=== PATIENT | female | born 1975 | race Caucasian/White ===

== ENCOUNTER 2020-02-25 18:11 | Emergency (ER) | payer MEDICAID, OTHER ==
[~2020-02-25] VITALS: Ht 154.9 cm; Wt 130.0 kg
[2020-02-25] MEDS ORDERED: DEXAMETHASONE 4 MG TABLET PO STA (19:44)
[2020-02-25] MEDS ORDERED: IBUPROFEN 200 MG TABLET PO ONE (20:00)
[2020-02-25] MEDS ORDERED: DEXAMETHASONE 4 MG TABLET ONE (20:04)
[2020-02-25] MEDS ORDERED: IBUPROFEN 600 MG TABLET ONE (20:04)
--- NOTE | 2020-02-25 20:08 | NUR ---
CONVERTER SKIMMER PER MAR
[2020-02-25 20:12] VITALS: BP 135/59
--- NOTE | 2020-02-25 20:20 | NUR ---
ALL RESULTS ARE BACK AT THIS TIME. CHART UP FOR RECHECK.
--- NOTE | 2020-02-25 20:56 | NUR ---
ALL RESULTS ARE BACK AT THIS TIME. CHART UP FOR RECHECK.
--- NOTE | 2020-02-25 21:02 | NUR ---
MD AT BEDSIDE TO UPDATE PT ON POC.
== END 2020-02-25 21:50 | disposition home or self-care (01) ==
LOC: ED 20:00
DX: J02.0 Streptococcal pharyngitis (principal); J44.9 Chronic obstructive pulmonary disease, unspecified
CPT/HCPCS: 70360; 87081; 87880; 99284

== ENCOUNTER 2020-03-13 09:35 | Emergency (ER) | payer MEDICAID ==
[~2020-03-13] VITALS: Ht 157.5 cm; Wt 130.0 kg
--- NOTE | 2020-03-13 09:58 | NUR ---
PT BIB AMBULANCE. PT C/O SOB SINCE 629. PER EMS PT WAS 93% RA. PT STATES SHE HAS A HX OF [place] AND COPD. PT DENIES FEVER OR CHEST PAIN AT THIS TIME. PT PLACED ON O2 SHE STATES SHE IS ON 3 LPM AT HOME. ALSO PER EMS PT STATES SHE HAS BEEN COUGHING UP YELLOW/BRWON SPUTUM. LAST EPISODE WAS THIS AM. PT STATES SHE HAD A POSITIVE STREP TEST LAST WEEK. PT PLACED IN A GOWN AND RESTING ON ED GURNEY.
--- NOTE | 2020-03-13 10:02 | NUR ---
PT TAKEN OFF O2 TO OBTAIN A BASE LINE 02 SATURATION
[2020-03-13] MEDS ORDERED: ALBUTEROL/IPRATROPIUM 2.5MG/0.5MG, 3 ML NEB ONE (10:30)
[2020-03-13] MEDS ORDERED: ALBUTEROL/IPRATROPIUM 2.5MG/0.5MG, 3 ML ONE (10:50)
--- NOTE | 2020-03-13 11:05 | NUR ---
PT MEDICATED PER MAR
[2020-03-13 11:20] LABS: BASOPHILS % (AUTO) 0 % (0-1); EOSINOPHILS % (AUTO) 2 % (1-7); LYMPHOCYTES % (AUTO) 14 % (22-44); MEAN CORPUSCULAR HEMOGLOBIN 27.9 pg (27.0-34.8); MEAN CORPUSCULAR HGB CONC 31.5 g/dL (32.4-35.8); MEAN PLATELET VOLUME 9.1 fL (7.4-10.4); MONOCYTES % (AUTO) 6 % (2-9); NEUTROPHILS % (AUTO) 78 % (42-75); PLATELET COUNT 219 x10^3/uL (130-400); RED BLOOD COUNT 4.25 x10^6/uL (3.82-5.3); RED CELL DISTRIBUTION WIDTH 16.4 % (9.6-15.2)
[2020-03-13 11:21] LABS: MD NO
[2020-03-13 11:26] LABS: ALANINE AMINOTRANSFERASE 21 U/L (12-78); ALBUMIN 3.3 g/dL (3.4-5.0); ANION GAP 3 mmol/L (5-15); CHLORIDE 112 mmol/L (98-107); CREATININE 0.94 mg/dL (0.55-1.02)
[2020-03-13 11:30] LABS: ALKALINE PHOSPHATASE 103 U/L (45-117); BILIRUBIN,TOTAL 0.6 mg/dL (0.2-1.0); TROPONIN I < 0.015 ng/mL (0.000-0.045)
--- NOTE | 2020-03-13 11:53 | NUR ---
PT C/O LOWER LEFT BACK PAIN WITH AMBULATION.
--- NOTE | 2020-03-13 11:53 | NUR ---
PT COMPLETED AMBULATION WITH SPO2 MONITORING. PT SPO2 RANGED FROM 93-96%. PT STATES SHE HAS DIFFICULTY MOVING DUE TO PAIN AND SOB. PT IS CONCERNED ABOUT GOING HOME DUE TO LIVING IN AN UPSTAIRS APT AND HAVING DIFFICULTY WITH GOING UP AND DOWN THEM.
[2020-03-13 13:09] VITALS: BP 139/69
--- NOTE | 2020-03-13 13:31 | NUR ---
PT REC'VD DISCHARGE INSTRUCTIONS AND EDUCATION. PT HAD NO FURTHER QUESTIONS. PT AMBULATED TO DISCHARGE AREA, STEADY GAIT.
== END 2020-03-13 13:39 | disposition home or self-care (01) ==
LOC: ED 09:40
DX: J44.1 Chronic obstructive pulmonary disease with (acute) exacerbation (principal); Z20.828 Contact with and (suspected) exposure to other viral communicable diseases; R06.02 Shortness of breath; R05 Cough; R06.00 Dyspnea, unspecified; R78.71 Abnormal lead level in blood; E66.01 Morbid (severe) obesity due to excess calories; Z88.0 Allergy status to penicillin; Z90.49 Acquired absence of other specified parts of digestive tract; Z90.710 Acquired absence of both cervix and uterus; Z79.899 Other long term (current) drug therapy; Z68.43 Body mass index [BMI] 50.0-59.9, adult; Z87.891 Personal history of nicotine dependence
CPT/HCPCS: 36415; 71045; 80053; 80178; 83880; 84484; 85025; 87635; 93005; 94640; 99285; J7512

== ENCOUNTER 2020-04-14 21:43 | Emergency (ER) | payer MEDICAID ==
[~2020-04-14] VITALS: Ht 157.5 cm; Wt 129.0 kg
--- NOTE | 2020-04-14 22:17 | NUR ---
PT TO ROOM FROM LOBBY
[2020-04-14] MEDS ORDERED: HYDROcodone/APAP 5/325 TABLET PO PRN (22:30)
[2020-04-14] MEDS ORDERED: IBUPROFEN 600 MG TABLET PO ONE (22:30)
--- NOTE | 2020-04-14 22:30 | NUR ---
CC OF R THUMB PAIN 9/10 FROM SLAMMING THUMB IN CAR DOOR YESTERDAY AFTER LEAVING AN AA MEETING. PAIN HAS NOT GOTTEN BETTER. NO OVBIOUS TRAUMA NOTED TO R THUMB, NO OPEN WOUNDS, NO SWELLING NOTED WHEN COMPARED TO OTHER THUMB.
[2020-04-14] MEDS ORDERED: HYDROcodone/APAP 5/325 TABLET ONE (22:33)
[2020-04-14] MEDS ORDERED: IBUPROFEN 600 MG TABLET ONE (22:34)
--- NOTE | 2020-04-14 22:39 | NUR ---
hydrocodone order for pain, pt states she is okay with taking it and that she only goes to NA meetings with friends to support them. made aware, okay to still give
[2020-04-14 22:43] VITALS: BP 108/39
== END 2020-04-14 23:14 | disposition home or self-care (01) ==
LOC: ED 22:39
DX: S60.011A Contusion of right thumb without damage to nail, initial encounter (principal); G89.11 Acute pain due to trauma; J44.9 Chronic obstructive pulmonary disease, unspecified; E66.01 Morbid (severe) obesity due to excess calories; Z90.49 Acquired absence of other specified parts of digestive tract; Z90.710 Acquired absence of both cervix and uterus; Z87.891 Personal history of nicotine dependence; X58.XXXA Exposure to other specified factors, initial encounter; Y93.89 Activity, other specified; Y92.098 Other place in other non-institutional residence as the place of occurrence of the external cause; Y99.8 Other external cause status
CPT/HCPCS: 99283

== ENCOUNTER 2020-04-20 23:47 | Emergency (ER) | payer MEDICAID ==
[~2020-04-20] VITALS: Ht 160 cm; Wt 129.4 kg
[2020-04-21 00:08] VITALS: BP 138/72
--- NOTE | 2020-04-21 01:49 | NUR ---
PT FROM [facility] TO [facility] WITH RX/DC PAPERWORK, CALLING MTM FOR RIDE HOME AT DC DESK.
== END 2020-04-21 01:50 | disposition home or self-care (01) ==
LOC: ED 04-21 00:15
DX: J45.31 Mild persistent asthma with (acute) exacerbation (principal); J15.9 Unspecified bacterial pneumonia; Z76.0 Encounter for issue of repeat prescription; E66.01 Morbid (severe) obesity due to excess calories
CPT/HCPCS: 29125; 71045; 99283

== ENCOUNTER 2020-04-25 02:20 | Emergency (ER) | payer MEDICAID ==
[~2020-04-25] VITALS: Ht 154.9 cm; Wt 128.0 kg
--- NOTE | 2020-04-25 02:45 | NUR ---
PT AMBULATED TO RESTROOM. PT TOLD RN L LEG/ARM NUMBNESS, PT TOLD MD Pfeiffer ARM NUMBNESS. STROKE ASSESSMENT NEGATIVE. PT COMPLAINING OF DIZZINESS. NOTIFIED.
[2020-04-25 02:58] VITALS: BP 110/68
== END 2020-04-25 03:08 | disposition home or self-care (01) ==
LOC: ED 02:47
DX: R20.2 Paresthesia of skin (principal); R94.31 Abnormal electrocardiogram [ECG] [EKG]; J44.9 Chronic obstructive pulmonary disease, unspecified; E66.01 Morbid (severe) obesity due to excess calories; Z90.49 Acquired absence of other specified parts of digestive tract; Z90.710 Acquired absence of both cervix and uterus; Z87.891 Personal history of nicotine dependence
CPT/HCPCS: 93005; 99283; 99284

== ENCOUNTER 2020-04-28 22:28 | Emergency (ER) | payer MEDICAID ==
[~2020-04-28] VITALS: Ht 157.5 cm; Wt 130.1 kg
--- NOTE | 2020-04-28 22:52 | NUR ---
PT IN BED, ATTACHED TO MONITORS. STATES SHE WAS SEEN AT [facility] TWO DAYS AGO FOR THE SAME ISSUE, AND "THEY FOUND NOTHING WRONG". PT ALSO NOTED TO HAVE A VERY LARGE REDDENED, MOIST AREA UNDER RIGHT BREAST.
[2020-04-28] MEDS ORDERED: SODIUM CHLORIDE FLUSH 10ML SYR IVF ONE (23:30)
[2020-04-28] MEDS ORDERED: SODIUM CHLORIDE 0.9% 1,000ML IVBOLUS ONE (23:30)
[2020-04-28] MEDS ORDERED: ONDANSETRON 2MG/ML, 2ML IVPush ONE (23:30)
[2020-04-28 23:39] LABS: ALANINE AMINOTRANSFERASE 16 U/L (12-78); ALBUMIN 3.3 g/dL (3.4-5.0); ANION GAP 4 mmol/L (5-15); CALCIUM 9.1 mg/dL (8.5-10.1); CHLORIDE 107 mmol/L (98-107); CREATININE 1.05 mg/dL (0.55-1.02)
[2020-04-28] MEDS ORDERED: ONDANSETRON 2MG/ML, 2ML ONE (23:40)
[2020-04-28] MEDS ORDERED: MORPHINE SULFATE 4 MG/ML, 1ML ONE (23:41)
[2020-04-28 23:42] LABS: ALKALINE PHOSPHATASE 96 U/L (45-117); BILIRUBIN,TOTAL 0.3 mg/dL (0.2-1.0); TOTAL PROTEIN 7.2 g/dL (6.4-8.2)
[2020-04-28 23:50] LABS: BASOPHILS % (AUTO) 0 % (0-1); EOSINOPHILS % (AUTO) 1 % (1-7); LYMPHOCYTES % (AUTO) 13 % (22-44); MEAN CORPUSCULAR HEMOGLOBIN 29.5 pg (27.0-34.8); MEAN CORPUSCULAR HGB CONC 32.8 g/dL (32.4-35.8); MEAN PLATELET VOLUME 9.2 fL (7.4-10.4); MONOCYTES % (AUTO) 6 % (2-9); NEUTROPHILS % (AUTO) 80 % (42-75); PLATELET COUNT 280 x10^3/uL (130-400); RED BLOOD COUNT 3.96 x10^6/uL (3.82-5.3); RED CELL DISTRIBUTION WIDTH 15.9 % (9.6-15.2)
[2020-04-28 23:51] LABS: MD NO
--- NOTE | 2020-04-28 23:52 | NUR ---
PT RESTING IN BED IN ROOM, PT ON MONITOR, PT VSS. IV STARTED BY CHEMICAL STRENGTH TESTER AND PT MEDICATED PER EMAR
[2020-04-29] MEDS: MORPHINE SULFATE 4 MG/ML, 1ML IVPush PRN ×2 (00:10→02:00)
[2020-04-29 00:19] LABS: MICROSCOPIC NOT IND
[2020-04-29] MEDS ORDERED: FLUCONAZOLE 200 MG TABLET PO STA (01:45)
[2020-04-29] MEDS ORDERED: OMNIPAQUE 350 MG/ML, 100ML BOTTLE ONE (01:49)
[2020-04-29] MEDS ORDERED: FLUCONAZOLE 100 MG TABLET ONE (01:52)
[2020-04-29] MEDS ORDERED: SULFAMETH./TRIMETHOPRIM DS 800MG/160MG TABLET ONE (01:52)
[2020-04-29] MEDS ORDERED: MORPHINE SULFATE 4 MG/ML, 1ML ONE ×2 (01:52→02:29)
[2020-04-29] MEDS ORDERED: SULFAMETH./TRIMETHOPRIM DS 800MG/160MG TABLET PO ONE (02:00)
[2020-04-29] MEDS ORDERED: ONDANSETRON 2MG/ML, 2ML ONE (02:28)
[2020-04-29] MEDS ORDERED: ONDANSETRON 2MG/ML, 2ML IVPush ONE (02:30)
[2020-04-29] MEDS ORDERED: MORPHINE SULFATE 4 MG/ML, 1ML IVPush PRN (02:30)
[2020-04-29 03:02] VITALS: BP 134/74
[2020-04-30] MEDS ORDERED: lithium PO (22:25)
[2020-04-30] MEDS ORDERED: ARIP30TA4 PO (22:25)
== END 2020-04-29 03:05 | disposition home or self-care (01) ==
LOC: ED 22:39
DX: B37.2 Candidiasis of skin and nail (principal); R10.31 Right lower quadrant pain; L03.313 Cellulitis of chest wall; B35.4 Tinea corporis; J44.9 Chronic obstructive pulmonary disease, unspecified
CPT/HCPCS: 36415; 74177; 80053; 81003; 83690; 85025; 96361; 96374; 96375; 96376; 99285; J2270; J2405; J7030; Q9967

== ENCOUNTER 2020-04-30 19:17 | Emergency (ER) | payer MEDICAID ==
[~2020-04-30] VITALS: Ht 154.9 cm; Wt 130.2 kg
[2020-04-30 21:14] LABS: BASOPHILS % (AUTO) 0 % (0-1); EOSINOPHILS % (AUTO) 1 % (1-7); LYMPHOCYTES % (AUTO) 12 % (22-44); MEAN CORPUSCULAR HEMOGLOBIN 29.6 pg (27.0-34.8); MEAN CORPUSCULAR HGB CONC 32.5 g/dL (32.4-35.8); MEAN PLATELET VOLUME 8.9 fL (7.4-10.4); MONOCYTES % (AUTO) 6 % (2-9); NEUTROPHILS % (AUTO) 81 % (42-75); PLATELET COUNT 273 x10^3/uL (130-400); RED BLOOD COUNT 3.89 x10^6/uL (3.82-5.3); RED CELL DISTRIBUTION WIDTH 16.3 % (9.6-15.2)
[2020-04-30 21:15] LABS: MD NO
[2020-04-30 21:24] LABS: ALBUMIN 3.5 g/dL (3.4-5.0); ANION GAP 4 mmol/L (5-15); CALCIUM 9.4 mg/dL (8.5-10.1); CHLORIDE 107 mmol/L (98-107)
[2020-04-30 21:30] LABS: ALANINE AMINOTRANSFERASE 19 U/L (12-78); ALKALINE PHOSPHATASE 102 U/L (45-117); BILIRUBIN,TOTAL 0.3 mg/dL (0.2-1.0); CREATININE 1.11 mg/dL (0.55-1.02); TOTAL PROTEIN 7.5 g/dL (6.4-8.2)
--- NOTE | 2020-04-30 22:17 | NUR ---
GLUE BONE DRIER: PT. TO ROOM FROM LOBBY AT THIS TIME.
[2020-04-30] MEDS ORDERED: ARIP30TA4 PO (22:25)
[2020-04-30] MEDS ORDERED: lithium PO (22:25)
--- NOTE | 2020-04-30 22:27 | NUR ---
pt reports she came in due to "my stomach gurgling a lot after i ate a sandwich and then i became nauseated and dizzy so i knew something was wrong." denies diarrhea or vomitting at this time. pt ambulated to and from restroom with a smooth and steady gait, now resting on gurney, placed on spo2/bp monitoring at this time. appears comfortable, denies additional questions or needs currently, wctm.
--- NOTE | 2020-04-30 23:12 | NUR ---
PT NAD, RESTING ON GURNEY, DENIES ADDITIONAL NEEDS AT THIS TIME, NO CHANGE IN CONDITION, PROVIDED WARM BLANKETS FOR COMFORT, PT UP FOR RECHECK, WCTM.
[2020-04-30] MEDS ORDERED: ONDANSETRON ODT 4 MG ONE (23:49)
--- NOTE | 2020-04-30 23:49 | NUR ---
Assist RN: patient to RAD. Choudhury to be admin.
--- NOTE | 2020-04-30 23:55 | NUR ---
Medicated patient per mar.
[2020-05-01] MEDS ORDERED: ONDANSETRON ODT 4 MG PO ONE
--- NOTE | 2020-05-01 00:17 | NUR ---
REPORT TO CAROLINA RECINOS, PT CARE TRANSFERRED AT THIS TIME. PT NAD.
--- NOTE | 2020-05-01 00:18 | NUR ---
RECEIVED REPORT FROM JORJE VERA TO ASSUME CARE OF PT. AT THIS TIME.
[2020-05-01 00:42] VITALS: BP 126/48
== END 2020-05-01 00:44 | disposition home or self-care (01) ==
LOC: ED 19:47
DX: R10.84 Generalized abdominal pain (principal); R11.0 Nausea; I48.91 Unspecified atrial fibrillation; J44.9 Chronic obstructive pulmonary disease, unspecified; E66.01 Morbid (severe) obesity due to excess calories; Z90.49 Acquired absence of other specified parts of digestive tract; Z90.710 Acquired absence of both cervix and uterus; Z87.891 Personal history of nicotine dependence; Z68.43 Body mass index [BMI] 50.0-59.9, adult
CPT/HCPCS: 36415; 74021; 80053; 83690; 85025; 93005; 99285; Q0162

== ENCOUNTER 2020-05-11 23:47 | Emergency (ER) | payer MEDICAID ==
[~2020-05-11] VITALS: Ht 157.5 cm; Wt 125.0 kg
[~2020-05-11 23:47] MED LIST: ARIP30TA4 PO; lithium PO
[2020-05-12 02:04] VITALS: BP 130/59
--- NOTE | 2020-05-12 02:17 | NUR ---
seen by PA, x ray resulted. patient discharged with instruction. verbalized understanding.
== END 2020-05-12 02:20 | disposition home or self-care (01) ==
LOC: ED 05-12 01:30
DX: B34.9 Viral infection, unspecified (principal); J44.9 Chronic obstructive pulmonary disease, unspecified; E66.01 Morbid (severe) obesity due to excess calories; Z87.891 Personal history of nicotine dependence
CPT/HCPCS: 71045; 99283

== ENCOUNTER 2020-05-23 23:00 | Emergency (ER) | payer MEDICAID ==
[~2020-05-23] VITALS: Ht 154.9 cm; Wt 127.0 kg
[2020-05-23] MEDS ORDERED: ONDANSETRON ODT 4 MG ONE (23:49)
[2020-05-24] MEDS ORDERED: ONDANSETRON ODT 4 MG PO ONE
[2020-05-24 00:05] LABS: BASOPHILS % (AUTO) 0 % (0-1); EOSINOPHILS % (AUTO) 2 % (1-7); LYMPHOCYTES % (AUTO) 15 % (22-44); MEAN CORPUSCULAR HGB CONC 32.5 g/dL (32.4-35.8); MEAN PLATELET VOLUME 8.8 fL (7.4-10.4); MONOCYTES % (AUTO) 6 % (2-9); NEUTROPHILS % (AUTO) 78 % (42-75); PLATELET COUNT 268 x10^3/uL (130-400); RED BLOOD COUNT 4.03 x10^6/uL (3.82-5.3); RED CELL DISTRIBUTION WIDTH 14.9 % (9.6-15.2)
[2020-05-24 00:06] LABS: MD NO
[2020-05-24 00:15] LABS: ALANINE AMINOTRANSFERASE 30 U/L (12-78); ALBUMIN 3.4 g/dL (3.4-5.0); ANION GAP 0 mmol/L (5-15); CALCIUM 8.9 mg/dL (8.5-10.1); CHLORIDE 110 mmol/L (98-107); CREATININE 1.07 mg/dL (0.55-1.02)
[2020-05-24 00:17] LABS: ALKALINE PHOSPHATASE 111 U/L (45-117); BILIRUBIN,TOTAL 0.5 mg/dL (0.2-1.0); TOTAL PROTEIN 7.1 g/dL (6.4-8.2)
[2020-05-24 00:36] LABS: MICROSCOPIC NOT IND
--- NOTE | 2020-05-24 01:37 | NUR ---
First contact with pt for discharge. Pt up dressed self, ambulates without assistance, steady gait. DC home in taxi/voucher with instruct and rx. Pt stable vs, no n/v. Pt verbalizes understanding of instruct and f/u. To return to ER if worse or concerns.
[2020-05-24 01:38] VITALS: BP 145/89
== END 2020-05-24 01:43 ==
LOC: ED 23:51
DX: R11.0 Nausea (principal); R05 Cough; J44.9 Chronic obstructive pulmonary disease, unspecified; E66.01 Morbid (severe) obesity due to excess calories; Z68.43 Body mass index [BMI] 50.0-59.9, adult
CPT/HCPCS: 36415; 80053; 80178; 81003; 83690; 85025; 99283; Q0162

== ENCOUNTER 2020-05-25 23:07 | Emergency (ER) | payer MEDICAID ==
[~2020-05-25] VITALS: Ht 154.9 cm; Wt 127.0 kg
--- NOTE | 2020-05-25 23:58 | NUR ---
PT ASSISTED TO BSC AND BACK TO BED.
[2020-05-26 00:04] VITALS: BP 119/38
--- NOTE | 2020-05-26 00:04 | NUR ---
RN at bedside. Provider at bedside.
== END 2020-05-26 00:34 | disposition home or self-care (01) ==
LOC: ED 05-26
DX: R06.00 Dyspnea, unspecified (principal); R07.9 Chest pain, unspecified; I48.91 Unspecified atrial fibrillation; J44.9 Chronic obstructive pulmonary disease, unspecified; E66.01 Morbid (severe) obesity due to excess calories; Z68.43 Body mass index [BMI] 50.0-59.9, adult
CPT/HCPCS: 71045; 93005; 99283

== ENCOUNTER 2020-07-05 03:52 | Emergency (ER) | payer MEDICAID ==
[~2020-07-05] VITALS: Ht 157.5 cm; Wt 127.0 kg
--- NOTE | 2020-07-05 03:58 | NUR ---
Patient BIB amb c/o SOB and chest pressure. Patient has a hx of sleep apnea and does not have a machine; she has been waking up lately SOB. Patient's chest was feeling "gunky," which has now turned to pressure. She used her home inhaler and neb tx with no relief. Patient also has a hx of asthma and COPD. Patient also c/o a rash under breasts since yesterday.
--- NOTE | 2020-07-05 04:21 | NUR ---
PT UP TO BEDSIDE COMMODE WITH THIS RN. STEADY ON FEET, C/O "INCREASED SOB WHEN MOVING". PT RETURNED TO [facility] VSS. PT DENIES ANY ADDITIONAL NEEDS AT THIS TIME. CALL LIGHT AND PERSONAL BELONGINGS WITHIN REACH
[2020-07-05] MEDS ORDERED: ALBUTEROL/IPRATROPIUM 2.5MG/0.5MG, 3 ML ONE (04:50)
--- NOTE | 2020-07-05 04:58 | NUR ---
DUONEB TX STARTED PER ERP ORDER. PT TOLERATING WELL. DENIES ANY NEEDS AT THIS TIME. CALL LIGHT AND BELONGINGS WITHIN REACH. WILL CONTINUE TO MONITOR.
[2020-07-05] MEDS ORDERED: ALBUTEROL/IPRATROPIUM 2.5MG/0.5MG, 3 ML NPPB ONE (05:00)
--- NOTE | 2020-07-05 05:20 | NUR ---
PT REPORTS IMPROVED SYMPTOMS FOLLOWING BREATHING TX. PT REPOSITIONED IN BED PER COMFORT AND DENIES ANY ADDITIONAL NEEDS AT THIS TIME. CALL LIGHT IN REACH
[2020-07-05 05:39] LABS: ALBUMIN 3.1 g/dL (3.4-5.0); ANION GAP 5 mmol/L (5-15); CALCIUM 9.2 mg/dL (8.5-10.1); CHLORIDE 111 mmol/L (98-107); CREATININE 1.05 mg/dL (0.55-1.02)
[2020-07-05 05:43] LABS: TROPONIN I < 0.015 ng/mL (0.000-0.045)
[2020-07-05 05:44] LABS: BASOPHILS % (AUTO) 0 % (0-1); EOSINOPHILS % (AUTO) 2 % (1-7); LYMPHOCYTES % (AUTO) 13 % (22-44); MEAN CORPUSCULAR HGB CONC 31.7 g/dL (32.4-35.8); MEAN PLATELET VOLUME 9.3 fL (7.4-10.4); MONOCYTES % (AUTO) 5 % (2-9); NEUTROPHILS % (AUTO) 80 % (42-75); PLATELET COUNT 289 x10^3/uL (130-400); RED BLOOD COUNT 4.18 x10^6/uL (3.82-5.3); RED CELL DISTRIBUTION WIDTH 14.4 % (9.6-15.2)
[2020-07-05 05:50] LABS: MD NO
[2020-07-05 06:05] VITALS: BP 140/72
[2020-07-05] MEDS ORDERED: DEXAMETHASONE 4 MG TABLET ONE (06:27)
[2020-07-05] MEDS ORDERED: DEXAMETHASONE 4 MG TABLET PO ONE (06:30)
--- NOTE | 2020-07-05 07:00 | NUR ---
Patient given discharge instructions and they have confirmed that they understand the instructions. Patient to d/c desk via wheelchair. Pt to call MTM at d/c desk
== END 2020-07-05 07:03 | disposition home or self-care (01) ==
LOC: ED 04:06
DX: J44.1 Chronic obstructive pulmonary disease with (acute) exacerbation (principal); R07.89 Other chest pain; R94.31 Abnormal electrocardiogram [ECG] [EKG]; Z90.49 Acquired absence of other specified parts of digestive tract; Z90.710 Acquired absence of both cervix and uterus; Z87.891 Personal history of nicotine dependence
CPT/HCPCS: 36415; 71045; 80048; 82040; 84484; 85025; 93005; 94640; 99285